=== PATIENT | male | born 1980 ===

== ENCOUNTER 2024-07-03 05:33 | Day surgery (SDC) | payer OTHER ==
[2024-07-03] MEDS ORDERED: fentaNYL CITRATE 50 MCG/ML AMPUL IV PUSH ONE (09:30)
[2024-07-03] MEDS ORDERED: MIDAZOLAM HCL 2 MG/2 ML VIAL IV ONE (09:30)
== END 2024-07-03 10:00 | disposition home or self-care (01) ==
LOC: AMB-ENDOS 05:33
PROVIDERS: ATTEND Colon & Rectal Surgery
DX: K63.5 Polyp of colon (principal); K57.30 Diverticulosis of large intestine without perforation or abscess without bleeding